=== PATIENT | male | born 1980 | race African-American/Black ===

== ENCOUNTER 2016-06-21 08:58 | Emergency (ER) | payer SELFPAY ==
[~2016-06-21] VITALS: Ht 190.5 cm; Wt 96.0 kg
[~2016-06-21 08:58] MED LIST: AUGMENTIN875TAB PO; BACTRIM DS1 TAB PO; DONNATA2 PO; MUPIROCIN2 % EX; NO CURRENT MEDS; ZITHROMAX250 MG OR
[2016-06-21 09:17] VITALS: BP 150/76
== END 2016-06-21 10:17 | disposition left against medical advice (07) | DRG 951 ==
LOC: ED 08:58 → LWOBS 10:17
DX: Z91.19 Patient's noncompliance with other medical treatment and regimen (principal)

== ENCOUNTER 2016-06-24 13:23 | Emergency (ER) | payer SELFPAY ==
[~2016-06-24] VITALS: Ht 190.5 cm; Wt 97.7 kg
[2016-06-24] MEDS ORDERED: BACTRIM DS1 TAB PO (14:11)
[2016-06-24] MEDS ORDERED: TRAMADOL HYDROC50 MG PO (14:11)
[2016-06-24 14:27] VITALS: BP 106/69
== END 2016-06-24 14:28 | disposition home or self-care (01) | DRG 603 ==
LOC: ED 13:23
PROC: 0H98XZZ Drainage of Buttock Skin, External Approach (ICD-10-PCS; principal; 2016-06-24)
PROC: 0H91XZZ Drainage of Face Skin, External Approach (ICD-10-PCS; 2016-06-24)
DX: L02.01 Cutaneous abscess of face (principal); L02.31 Cutaneous abscess of buttock; F17.210 Nicotine dependence, cigarettes, uncomplicated

== ENCOUNTER 2016-08-02 03:20 | Emergency (ER) | payer SELFPAY ==
[~2016-08-02] VITALS: Ht 190.5 cm; Wt 90.0 kg
[~2016-08-02 03:20] MED LIST changes: +TRAMADOL HYDROC50 MG PO
[2016-08-02 04:20] LABS: ALBUMIN 4.5 g/dL (3.2-5.0); ALKALINE PHOSPHATASE 69 u/l (38-126); AMYLASE 97 u/l (30-110); ANION GAP 15 (6-22 (CALC)); BILIRUBIN, TOTAL 0.7 mg/dL (0.0-1.4); BUN 11 mg/dL (9-20); BUN/CREATININE RATIO 8 (12-20 (CALC)); CALCIUM 9.5 mg/dL (8.4-10.2); CARBON DIOXIDE 26 mmol/l (22-30); CHLORIDE 105 mmol/l (95-108); CREATININE 1.4 mg/dL (0.7-1.3); GFR 58 ML/MIN (>=60 (CALC)); GFR FOR AFR.AMER. > 60 ML/MIN (>=60 (CALC)); GLUCOSE 125 mg/dL (75-110); LIPASE 79 u/l (23-300); POTASSIUM 3.8 mmol/l (3.5-5.1); SGOT/AST 38 u/l (17-59); SGPT/ALT 23 u/l (21-72); SODIUM 142 mmol/l (137-146); TOTAL PROTEIN 8.3 g/dL (6.3-8.2)
[2016-08-02 04:33] LABS: HEMATOCRIT 41.7 % (39.0-50.0); HEMOGLOBIN 14.1 g/dl (14.0-18.0); IMMATURE GRANULOCYTES 0.3 % (0.0-1.0); MEAN CORPUSCULAR HGB 32.1 pG CALC (26.0-32.0); MEAN CORPUSCULAR HGB CONC 33.8 g/L CALC (32.0-36.0); NEUT# 7.29 thou/uL (1.82-7.42); RED BLOOD COUNT 4.39 mill/uL (4.70-6.10); RED CELL DISTRI WIDTH 13.6 % (11.5-15.5)
[2016-08-02 04:46] LABS: URINE BILIRUBIN - DIPSTICK NEGATIVE (NEGATIVE); URINE BLOOD DIPSTICK NEGATIVE (NEGATIVE); URINE CLARITY CLEAR; URINE COLOR YELLOW; URINE GLUCOSE - DIPSTICK NEGATIVE (NEGATIVE); URINE KETONE TRACE mg/dL (NEGATIVE); URINE LEUK ESTERASE NEGATIVE (NEGATIVE); URINE NITRITE - DIPSTICK NEGATIVE (Negative); URINE PROTEIN - DIPSTICK TRACE mg/dL (NEG-TRACE)
[2016-08-02 09:26] VITALS: BP 100/60
== END 2016-08-02 09:12 | disposition left against medical advice (07) | DRG 392 ==
LOC: ED 03:20
PROVIDERS: Emergency Medicine
DX: R10.9 Unspecified abdominal pain (principal); F17.210 Nicotine dependence, cigarettes, uncomplicated; Z91.19 Patient's noncompliance with other medical treatment and regimen
CPT/HCPCS: Q9967

== ENCOUNTER 2016-10-11 08:18 | Emergency (ER) | payer SELFPAY ==
[~2016-10-11] VITALS: Ht 190.5 cm; Wt 100.0 kg
[2016-10-11 08:25] VITALS: BP 124/82
[2016-10-11] MEDS ORDERED: CLINDAMYCIN300 M1 PO (08:35)
== END 2016-10-11 08:55 | disposition home or self-care (01) | DRG 603 ==
LOC: ED 08:18
DX: L02.211 Cutaneous abscess of abdominal wall (principal); F17.210 Nicotine dependence, cigarettes, uncomplicated

== ENCOUNTER 2016-11-07 11:10 | Emergency (ER) | payer SELFPAY ==
[~2016-11-07] VITALS: Ht 190.5 cm; Wt 104.0 kg
[~2016-11-07 11:10] MED LIST changes: +CLINDAMYCIN300 M1 PO
[2016-11-07 11:15] VITALS: BP 137/81
== END 2016-11-07 11:30 | disposition left against medical advice (07) | DRG 951 ==
LOC: ED 11:10
DX: Z91.19 Patient's noncompliance with other medical treatment and regimen (principal)

== ENCOUNTER 2017-03-19 00:10 | Emergency (ER) | payer SELFPAY ==
[~2017-03-19] VITALS: Ht 190.5 cm; Wt 100.0 kg
[2017-03-19] MEDS ORDERED: XANAX0.25 MG PO (01:05)
[2017-03-19] MEDS ORDERED: CEPHALEXIN500 MG PO (01:05)
[2017-03-19 01:08] VITALS: BP 129/95
== END 2017-03-19 01:13 | disposition home or self-care (01) | DRG 603 ==
LOC: ED 00:10
DX: L01.00 Impetigo, unspecified (principal)

== ENCOUNTER 2017-03-28 10:00 | Emergency (ER) | payer SELFPAY ==
[~2017-03-28] VITALS: Ht 190.5 cm; Wt 92.1 kg
[~2017-03-28 10:00] MED LIST changes: +CEPHALEXIN500 MG PO; +XANAX0.25 MG PO
[2017-03-28 10:13] VITALS: BP 137/76
== END 2017-03-28 10:15 | disposition left against medical advice (07) | DRG 951 ==
LOC: ED 10:00 → LWOBS 10:15
DX: Z91.19 Patient's noncompliance with other medical treatment and regimen (principal)

== ENCOUNTER 2017-04-01 21:47 | Emergency (ER) | payer SELFPAY ==
[~2017-04-01] VITALS: Ht 190.5 cm; Wt 88.0 kg
[2017-04-01 22:56] LABS: INFLUENZA A NONE DETECTED (NONE DETECT); INFLUENZA B NONE DETECTED (NONE DETECT)
[2017-04-01] MEDS ORDERED: CLARITIN10 M1 PO (23:09)
[2017-04-01] MEDS ORDERED: AMOXICILLIN500 MG PO (23:09)
[2017-04-01 23:35] VITALS: BP 119/68
== END 2017-04-01 23:37 | disposition home or self-care (01) | DRG 153 ==
LOC: ED 21:47
PROVIDERS: Emergency Medicine
DX: J02.0 Streptococcal pharyngitis (principal); F17.210 Nicotine dependence, cigarettes, uncomplicated; R05 Cough

== ENCOUNTER 2017-09-27 11:54 | Emergency (ER) | payer SELFPAY ==
[~2017-09-27] VITALS: Ht 190.5 cm; Wt 95.0 kg
[~2017-09-27 11:54] MED LIST changes: +AMOXICILLIN500 MG PO; +CLARITIN10 M1 PO
[2017-09-27] MEDS ORDERED: BACTROBAN TOP (12:19)
[2017-09-27] MEDS ORDERED: BACTRIM DS1 TAB PO (12:19)
[2017-09-27] MEDS ORDERED: KEFLEX500 M1 PO (12:19)
[2017-09-27 12:28] VITALS: BP 122/36
== END 2017-09-27 12:35 | disposition home or self-care (01) | DRG 603 ==
LOC: ED 11:54
DX: L02.31 Cutaneous abscess of buttock (principal)

== ENCOUNTER 2018-01-12 15:03 | Emergency (ER) | payer SELFPAY ==
[~2018-01-12] VITALS: Ht 190.5 cm; Wt 94.5 kg
[~2018-01-12 15:03] MED LIST changes: +BACTROBAN TOP; +KEFLEX500 M1 PO
[2018-01-12 15:42] VITALS: BP 119/65
[2018-01-12] MEDS ORDERED: DOXYCYC MONO100 M1 PO (15:42)
== END 2018-01-12 15:51 | disposition home or self-care (01) | DRG 603 ==
LOC: ED 15:03
PROC: 0H91XZZ Drainage of Face Skin, External Approach (ICD-10-PCS; principal; 2018-01-12)
DX: L02.01 Cutaneous abscess of face (principal); F17.210 Nicotine dependence, cigarettes, uncomplicated; B95.7 Other staphylococcus as the cause of diseases classified elsewhere

== ENCOUNTER 2018-01-13 15:50 | Emergency (ER) | payer SELFPAY ==
[~2018-01-13 15:50] MED LIST changes: +DOXYCYC MONO100 M1 PO
== END 2018-01-13 15:54 | disposition left against medical advice (07) | DRG 951 ==
LOC: ED 15:50 → LWOBS 15:54
DX: Z91.19 Patient's noncompliance with other medical treatment and regimen (principal)

== ENCOUNTER 2018-01-14 11:15 | Emergency (ER) | payer SELFPAY ==
[~2018-01-14] VITALS: Ht 190.5 cm; Wt 95.0 kg
[2018-01-14 11:34] VITALS: BP 123/78
== END 2018-01-14 11:42 | disposition home or self-care (01) | DRG 951 ==
LOC: ED 11:15
DX: Z48.01 Encounter for change or removal of surgical wound dressing (principal)

== ENCOUNTER 2018-04-23 20:19 | Emergency (ER) | payer SELFPAY ==
[~2018-04-23] VITALS: Ht 190.5 cm; Wt 98.6 kg
[2018-04-23 22:25] VITALS: BP 124/64
== END 2018-04-23 22:22 | disposition home or self-care (01) | DRG 556 ==
LOC: ED 20:19
DX: M25.562 Pain in left knee (principal); M17.12 Unilateral primary osteoarthritis, left knee; F17.210 Nicotine dependence, cigarettes, uncomplicated

== ENCOUNTER 2018-04-27 20:12 | Emergency (ER) | payer SELFPAY ==
[~2018-04-27] VITALS: Ht 190.5 cm; Wt 93.0 kg
[2018-04-27] MEDS ORDERED: ZOFRAN ODT4 MG PO (21:13)
[2018-04-27 21:23] VITALS: BP 110/62
== END 2018-04-27 22:11 | disposition home or self-care (01) | DRG 392 ==
LOC: ED 20:12
DX: K52.9 Noninfective gastroenteritis and colitis, unspecified (principal); F17.200 Nicotine dependence, unspecified, uncomplicated

== ENCOUNTER 2018-05-31 10:24 | Emergency (ER) | payer SELFPAY ==
[~2018-05-31] VITALS: Ht 190.5 cm; Wt 92.4 kg
[~2018-05-31 10:24] MED LIST changes: +ZOFRAN ODT4 MG PO
[2018-05-31] MEDS ORDERED: DOXYCYC MONO100 M2 PO (10:50)
[2018-05-31 10:54] VITALS: BP 141/81
== END 2018-05-31 10:56 | disposition home or self-care (01) | DRG 603 ==
LOC: ED 10:24
DX: L05.01 Pilonidal cyst with abscess (principal); J06.9 Acute upper respiratory infection, unspecified; R05 Cough

== ENCOUNTER 2018-09-26 11:51 | Emergency (ER) | payer SELFPAY ==
[~2018-09-26] VITALS: Ht 190.5 cm; Wt 100.0 kg
[~2018-09-26 11:51] MED LIST changes: +DOXYCYC MONO100 M2 PO
[2018-09-26] MEDS ORDERED: KEFLEX500 M1 PO (13:01)
[2018-09-26 13:20] VITALS: BP 148/62
== END 2018-09-26 13:20 | disposition home or self-care (01) | DRG 395 ==
LOC: ED 11:51
DX: K61.1 Rectal abscess (principal)

== ENCOUNTER 2018-11-01 14:24 | Emergency (ER) | payer SELFPAY ==
[~2018-11-01] VITALS: Ht 190.5 cm; Wt 97.0 kg
[2018-11-01 15:00] VITALS: BP 140/85
== END 2018-11-01 15:00 | disposition home or self-care (01) | DRG 392 ==
LOC: ED 14:24
DX: R11.10 Vomiting, unspecified (principal); F17.210 Nicotine dependence, cigarettes, uncomplicated

== ENCOUNTER 2018-11-20 10:23 | Emergency (ER) | payer SELFPAY ==
[~2018-11-20] VITALS: Ht 190.5 cm; Wt 100.0 kg
[2018-11-20] MEDS ORDERED: VISTARIL 50MG C50 M1 PO (10:42)
[2018-11-20 10:48] VITALS: BP 142/76
== END 2018-11-20 10:48 | disposition home or self-care (01) | DRG 103 ==
LOC: ED 10:23
DX: R51 Headache (principal); F17.200 Nicotine dependence, unspecified, uncomplicated

== ENCOUNTER 2018-12-19 20:09 | Emergency (ER) | payer SELFPAY ==
[~2018-12-19] VITALS: Ht 190.5 cm; Wt 97.7 kg
[~2018-12-19 20:09] MED LIST changes: +VISTARIL 50MG C50 M1 PO
[2018-12-19] MEDS ORDERED: ZOFRAN4 M1 PO (20:43)
[2018-12-19 21:24] VITALS: BP 134/77
== END 2018-12-19 21:26 | disposition home or self-care (01) | DRG 392 ==
LOC: ED 20:09
DX: R11.2 Nausea with vomiting, unspecified (principal); F17.210 Nicotine dependence, cigarettes, uncomplicated

== ENCOUNTER 2018-12-21 07:54 | Emergency (ER) | payer SELFPAY ==
[~2018-12-21] VITALS: Ht 190.5 cm; Wt 100.0 kg
[~2018-12-21 07:54] MED LIST changes: +ZOFRAN4 M1 PO
[2018-12-21] MEDS ORDERED: ONDANSETRON4 MG PO (08:22)
[2018-12-21 08:25] VITALS: BP 137/84
== END 2018-12-21 08:30 | disposition home or self-care (01) | DRG 392 ==
LOC: ED 07:54
DX: K52.9 Noninfective gastroenteritis and colitis, unspecified (principal); F17.200 Nicotine dependence, unspecified, uncomplicated

== ENCOUNTER 2019-01-08 19:27 | Emergency (ER) | payer SELFPAY ==
[~2019-01-08] VITALS: Ht 190.5 cm; Wt 93.4 kg
[~2019-01-08 19:27] MED LIST changes: +ONDANSETRON4 MG PO
[2019-01-08] MEDS ORDERED: BACTROBAN TOP (20:06)
[2019-01-08] MEDS ORDERED: KEFLEX500 M1 PO (20:06)
[2019-01-08] MEDS ORDERED: BACTRIM DS1 TAB PO (20:06)
[2019-01-08 20:20] VITALS: BP 125/77
== END 2019-01-08 20:20 | disposition home or self-care (01) | DRG 603 ==
LOC: ED 19:27
DX: L02.31 Cutaneous abscess of buttock (principal); F17.200 Nicotine dependence, unspecified, uncomplicated

== ENCOUNTER 2019-01-24 18:04 | Emergency (ER) | payer OTHER ==
[~2019-01-24] VITALS: Ht 190.5 cm; Wt 98.0 kg
[2019-01-24] MEDS ORDERED: CEPHALEXIN500 M1 PO (18:32)
[2019-01-24] MEDS ORDERED: AMBIEN5 MG PO (18:32)
[2019-01-24] MEDS ORDERED: NAPROXEN500 MG PO (18:33)
[2019-01-24 18:35] VITALS: BP 128/78
== END 2019-01-24 18:38 | disposition home or self-care (01) | DRG 603 ==
LOC: ED 18:04
DX: L02.31 Cutaneous abscess of buttock (principal); F17.210 Nicotine dependence, cigarettes, uncomplicated; Z53.20 Procedure and treatment not carried out because of patient's decision for unspecified reasons

== ENCOUNTER 2019-02-19 21:31 | Emergency (ER) | payer OTHER ==
[~2019-02-19] VITALS: Ht 190.5 cm; Wt 96.0 kg
[~2019-02-19 21:31] MED LIST changes: +AMBIEN5 MG PO; +CEPHALEXIN500 M1 PO; +NAPROXEN500 MG PO
[2019-02-19] MEDS ORDERED: CLEOCIN300 MG PO (22:43)
[2019-02-19] MEDS ORDERED: CEPHALEXIN500 MG PO (22:43)
[2019-02-19 23:00] VITALS: BP 143/88
== END 2019-02-19 23:00 | disposition home or self-care (01) | DRG 153 ==
LOC: ED 21:31
DX: J06.9 Acute upper respiratory infection, unspecified (principal); L08.9 Local infection of the skin and subcutaneous tissue, unspecified; F17.200 Nicotine dependence, unspecified, uncomplicated

== ENCOUNTER 2019-03-19 12:56 | Emergency (ER) | payer OTHER ==
[~2019-03-19 12:56] MED LIST changes: +CLEOCIN300 MG PO
== END 2019-03-19 13:18 | disposition left against medical advice (07) | DRG 951 ==
LOC: ED 12:56 → LWOBS 13:18
DX: Z53.21 Procedure and treatment not carried out due to patient leaving prior to being seen by health care provider (principal)

== ENCOUNTER 2019-04-06 | Emergency (ER) | payer OTHER ==
[2019-04-06] MEDS ORDERED: MOTRIN400 MG PO (09:40)
== END 2019-04-06 09:50 | disposition home or self-care (01) | DRG 556 ==
DX: M25.562 Pain in left knee (principal); F17.200 Nicotine dependence, unspecified, uncomplicated; W22.8XXA Striking against or struck by other objects, initial encounter; Y92.89 Other specified places as the place of occurrence of the external cause; Y99.0 Civilian activity done for income or pay

== ENCOUNTER 2019-04-21 07:31 | Emergency (ER) | payer OTHER ==
[~2019-04-21 07:31] MED LIST changes: +MOTRIN400 MG PO
[2019-04-21] MEDS ORDERED: BACTRIM DS1 TAB PO (08:13)
[2019-04-21 08:21] VITALS: BP 120/64
== END 2019-04-21 08:21 | disposition home or self-care (01) | DRG 603 ==
LOC: ED 07:31
DX: L08.9 Local infection of the skin and subcutaneous tissue, unspecified (principal); B95.62 Methicillin resistant Staphylococcus aureus infection as the cause of diseases classified elsewhere; F17.210 Nicotine dependence, cigarettes, uncomplicated

== ENCOUNTER 2019-05-17 09:08 | Emergency (ER) | payer OTHER ==
[2019-05-17] MEDS ORDERED: MOTRIN800 MG PO (09:34)
[2019-05-17 09:53] VITALS: BP 130/88
== END 2019-05-17 09:57 | disposition home or self-care (01) | DRG 103 ==
LOC: ED 09:08
DX: R51 Headache (principal); F17.200 Nicotine dependence, unspecified, uncomplicated

== ENCOUNTER 2019-06-06 20:34 | Emergency (ER) | payer OTHER ==
[~2019-06-06 20:34] MED LIST changes: +MOTRIN800 MG PO
[2019-06-06 21:26] VITALS: BP 123/77
== END 2019-06-06 21:24 | disposition home or self-care (01) | DRG 951 ==
LOC: ED 20:34
DX: Z03.89 Encounter for observation for other suspected diseases and conditions ruled out (principal); F17.210 Nicotine dependence, cigarettes, uncomplicated

== ENCOUNTER 2019-06-26 07:42 | Emergency (ER) | payer OTHER ==
[2019-06-26] MEDS ORDERED: BACTRIM DS1 TAB PO (08:23)
[2019-06-26] MEDS ORDERED: CEPHALEXIN500 M1 PO (08:23)
[2019-06-26] MEDS ORDERED: MOTRIN400 MG PO (08:23)
[2019-06-26 09:00] VITALS: BP 115/68
== END 2019-06-26 09:00 | disposition home or self-care (01) | DRG 603 ==
LOC: ED 07:42
DX: L05.91 Pilonidal cyst without abscess (principal); F17.290 Nicotine dependence, other tobacco product, uncomplicated

== ENCOUNTER 2019-07-23 | Emergency (ER) | payer OTHER ==
[2019-07-23] MEDS ORDERED: ONDANSETRON4 MG PO (09:39)
== END 2019-07-23 09:50 | disposition home or self-care (01) | DRG 392 ==
DX: R10.33 Periumbilical pain (principal); R11.0 Nausea; F17.200 Nicotine dependence, unspecified, uncomplicated

== ENCOUNTER 2022-07-21 16:51 | Emergency (ER) | payer MEDICAID ==
[~2022-07-21] VITALS: Ht 190.5 cm; Wt 107.0 kg
[2022-07-21 17:17] VITALS: BP 119/76
[2022-07-21] MEDS ORDERED: NAPROXEN500 MG PO ×2 (18:22→19:13)
[2022-07-21] MEDS ORDERED: HYDROCO/APAP1 TA9 PO ×2 (18:22→19:13)
[2022-07-21 18:33] VITALS: BP 83/63
[2022-07-21 19:00] VITALS: BP 83/63
== END 2022-07-21 19:25 | disposition home or self-care (01) ==
LOC: ED 16:51
DX: S83.91XA Sprain of unspecified site of right knee, initial encounter (principal); F17.200 Nicotine dependence, unspecified, uncomplicated; W55.22XA Struck by cow, initial encounter; Y93.89 Activity, other specified; Y92.89 Other specified places as the place of occurrence of the external cause; Y99.0 Civilian activity done for income or pay

== ENCOUNTER 2022-08-06 13:42 | Emergency (ER) | payer MEDICAID ==
[~2022-08-06] VITALS: Ht 190.5 cm; Wt 100.0 kg
[~2022-08-06 13:42] MED LIST changes: +HYDROCO/APAP1 TA9 PO
[2022-08-06] MEDS ORDERED: MEDDOSEPAK PO (16:27)
[2022-08-06] MEDS ORDERED: NAPROXEN500 MG PO (16:27)
[2022-08-06] MEDS ORDERED: CYCLOBENZAPRINE10 MG PO (16:27)
[2022-08-06] MEDS ORDERED: CONSTULOSE10 GM/15 M PO (16:29)
[2022-08-06 17:02] VITALS: BP 165/88
== END 2022-08-06 17:10 | disposition home or self-care (01) ==
LOC: ED 13:42
DX: S83.91XA Sprain of unspecified site of right knee, initial encounter (principal); M54.50 Low back pain, unspecified; K59.00 Constipation, unspecified; F17.200 Nicotine dependence, unspecified, uncomplicated; W55.22XA Struck by cow, initial encounter; Y99.0 Civilian activity done for income or pay

== ENCOUNTER 2022-09-06 20:26 | Emergency (ER) | payer MEDICAID ==
[~2022-09-06] VITALS: Ht 190.5 cm; Wt 105.0 kg
[~2022-09-06 20:26] MED LIST changes: +CONSTULOSE10 GM/15 M PO; +CYCLOBENZAPRINE10 MG PO; +MEDDOSEPAK PO
[2022-09-06 20:37] VITALS: BP 105/58
[2022-09-06 21:01] VITALS: BP 94/52
[2022-09-06] MEDS ORDERED: BACTRIM DS1 TAB PO (21:06)
[2022-09-06 21:31] VITALS: BP 101/66
== END 2022-09-06 21:43 | disposition left against medical advice (07) ==
LOC: ED 20:26
DX: K61.1 Rectal abscess (principal); F17.200 Nicotine dependence, unspecified, uncomplicated; Z53.29 Procedure and treatment not carried out because of patient's decision for other reasons